=== PATIENT | female | born 2000 | race African-American/Black ===

== ENCOUNTER 2022-03-04 06:12 | Emergency (ER) | payer SELFPAY ==
[2022-03-04] MEDS ORDERED: Acetaminophen/Codeine 30-300mg Tablet ONE (06:36)
[2022-03-04] MEDS ORDERED: Ketorolac Tromethamine 30 MG/ML VIAL ONE (06:36)
== END 2022-03-04 06:49 | disposition home or self-care (01) ==
LOC: CSHERS 06:12
DX: K04.7 Periapical abscess without sinus (principal)
CPT/HCPCS: 96372; 99282; J1885

== ENCOUNTER 2022-05-05 13:40 | Emergency (ER) | payer SELFPAY | END 2022-05-05 15:34 | disposition left against medical advice (07) | LOC: CSHERS 13:40 | DX: Z53.21 Procedure and treatment not carried out due to patient leaving prior to being seen by health care provider (principal) ==

== ENCOUNTER 2022-05-05 20:38 | Emergency (ER) | payer SELFPAY ==
[2022-05-05 23:15] LABS: Bilirubin Neg (Negative); Blood, Urine Negative (Negative); Glucose, Urine (Dipstick) Normal (Negative); Ketone, Urine Negative (Negative); Leukocyte 25 (Negative); Nitrite Negative (Negative); Protein, Urine (Dipstick) 30 mg/dl (Neg-Trace); Specific Gravity, Urine 1.015 (1.005-1.030); pH, Urine 6.5 (5.0-9.0)
[2022-05-05 23:18] LABS: Clarity Hazy (Clear)
[2022-05-05 23:21] LABS: Bacteria/HPF 1+ HPF (None Seen); Mucous/LPF Rare LPF (<2+); RBC/HPF None Seen HPF (0-3)
[2022-05-05 23:25] LABS: Pregnancy Test - Urine (BHCG) Negative (Negative); Pregu Control Background? CLEAR/WHITE (CLR/WHITE); Pregu Control Bar Appear? YES (CONTROL BAR); Specific Gravity 1.015 (1.002-1.036)
== END 2022-05-05 23:47 | disposition home or self-care (01) ==
LOC: CSHERS 20:38
DX: R11.2 Nausea with vomiting, unspecified (principal); R19.7 Diarrhea, unspecified
CPT/HCPCS: 81003; 81015; 81025; 99284